=== PATIENT | male | born 1970 | race Two or more races ===

== ENCOUNTER 2020-04-15 22:18 | Emergency (ER) | payer BC, OTHER ==
[~2020-04-15] VITALS: Ht 177.8 cm; Wt 83.6 kg
[2020-04-15] MEDS ORDERED: SODIUM CHLORIDE FLUSH 10ML SYR IVF ONE (23:00)
--- NOTE | 2020-04-15 23:01 | NUR ---
THIS PT PRESENTED TO THE ED FOR FULL FACE TINGLING. PT STATES HIS TOUNGE FEELS NUMB AND WHEN HE'S CHEWING HIS FOOD AT BOTH LUNCH AND DINNER SOME FOOD COMES OUT OF HIS MOUTH. PT STATES HE HAS MULTIPLE DRINKS DAILY, TODAY 2 BEERS AND "A VODKA JUICE." INITIAL RIGHT SIDE FACE DROOP NOTED BY THIS RN, NOT NOTED BY DOC. PT COMPLAINS OF MORE TINGLING ON LEFT SIDE UPPER AND LOWER EXTREMITIES. PT PLACED ON CARDIAC, BP AND O2 MONITORS.
[2020-04-15 23:07] LABS: BASOPHILS # (AUTO) 0.15 x10^3/uL (0-0.1); BASOPHILS % (AUTO) 2 % (0-1); EOSINOPHILS # (AUTO) 0.16 x10^3/uL (0-0.4); EOSINOPHILS % (AUTO) 2 % (1-7); LYMPHOCYTES # (AUTO) 4.33 x10^3/uL (1-3.4); LYMPHOCYTES % (AUTO) 53 % (22-44); MD NO; MEAN CORPUSCULAR HEMOGLOBIN 31.4 pg (27.5-34.5); MEAN CORPUSCULAR HGB CONC 34.1 g/dL (33.2-36.2); MEAN CORPUSCULAR VOLUME 92.3 fL (81-97); MEAN PLATELET VOLUME 7.7 fL (7.4-10.4); MONOCYTES # (AUTO) 0.78 x10^3/uL (0.2-0.8); MONOCYTES % (AUTO) 9 % (2-9); NEUTROPHILS # (AUTO) 2.83 x10^3/uL (1.8-6.8); NEUTROPHILS % (AUTO) 34 % (42-75); PLATELET COUNT 370 x10^3/uL (130-400); RED BLOOD COUNT 4.33 x10^6/uL (4.38-5.82); RED CELL DISTRIBUTION WIDTH 13.1 % (9.4-14.8)
[2020-04-15 23:09] LABS: ALANINE AMINOTRANSFERASE 32 U/L (12-78); ALBUMIN 3.6 g/dL (3.4-5.0); ANION GAP 9 mmol/L (5-15); CALCIUM 8.7 mg/dL (8.5-10.1); CHLORIDE 107 mmol/L (98-107); CREATININE 0.79 mg/dL (0.7-1.3)
[2020-04-15 23:14] LABS: ALKALINE PHOSPHATASE 75 U/L (45-117); BILIRUBIN,TOTAL 0.6 mg/dL (0.2-1.0); TOTAL PROTEIN 7.3 g/dL (6.4-8.2); TROPONIN I < 0.015 ng/mL (0.000-0.045)
--- NOTE | 2020-04-15 23:42 | NUR ---
PT SLEEPING, EASILY ROUSED WITH VERBAL STIMULI. PT STATES HE'S "GOOD" WHEN ASKED HOW HE IS DOING. REMAINS AT BEDSIDE AND CALL LIGHT IS IN REACH. BED RAILS UPX2.
--- NOTE | 2020-04-16 | NUR ---
ERP TO BEDSIDE.
[2020-04-16 00:31] VITALS: BP 98/60
== END 2020-04-16 01:01 | disposition home or self-care (01) ==
LOC: ED 23:57
DX: G45.8 Other transient cerebral ischemic attacks and related syndromes (principal); G46.0 Middle cerebral artery syndrome; R51 Headache; R94.31 Abnormal electrocardiogram [ECG] [EKG]
CPT/HCPCS: 36415; 70450; 71045; 80053; 80307; 84484; 85025; 93005; 99285